=== PATIENT | female | born 1990 | race Caucasian/White ===

== ENCOUNTER 2024-11-05 11:05 | Emergency (ER) | payer MEDICAID ==
[~2024-11-05] VITALS: Ht 170.2 cm; Wt 90.0 kg
[2024-11-05 11:18] VITALS: O2SAT 99
[2024-11-05 11:23] VITALS: BP 124/77; PULSE 94; RESP 18; TEMP 98.6; O2SAT 97
[2024-11-05] MEDS ORDERED: ACETAMINOPHEN 500MG TABLET PO ONE (13:00)
[2024-11-05] MEDS ORDERED: BENZ100C86 MT (14:40)
[2024-11-05] MEDS ORDERED: GUAI-453 MT (14:40)
[2024-11-05] MEDS: ACETAMINOPHEN 500MG TABLET PO NR (15:19)
== END 2024-11-05 15:16 | disposition home or self-care (01) ==
LOC: ER 11:05
DX: J06.9 Acute upper respiratory infection, unspecified (principal); B97.89 Other viral agents as the cause of diseases classified elsewhere
CPT/HCPCS: 71045; 99283